=== PATIENT | female | born 1955 | race African-American/Black ===

== ENCOUNTER 2024-06-20 00:50 | Inpatient (IN) | payer OTHER ==
[~2024-06-20] VITALS: Ht 165.1 cm; Wt 113.4 kg
[2024-06-20 01:22] LABS: BASOPHILS % 0.9 % (0.0-2.0); EOSINOPHILS % 2.1 % (0.0-5.0); HEMATOCRIT. 38.1 % (36.0-48.0); HEMOGLOBIN. 12.6 g/dL (12.0-16.0); LYMPHOCYTES % 43.7 % (20.0-50.0); MEAN CORPUSCULAR HEMOGLOBIN 28.5 pg (28.0-32.0); MEAN CORPUSCULAR HGB CONC 33.1 g/dL (31.0-37.0); MEAN CORPUSCULAR VOLUME 85.9 fL (81.0-99.0); MEAN PLATELET VOLUME 8.5 fl (7.4-10.4); MONOCYTES % 8.6 % (2.0-8.0); NEUTROPHILS % 44.7 % (40.0-76.0); PLATELET 257 x1000/uL (130-400); RED BLOOD CELL COUNT 4.43 mill/uL (4.2-5.4); RED CELL DISTRIBUTION WIDTH 15.4 % (11.6-14.6); WHITE BLOOD COUNT 7.7 x1000/uL (4.5-11.0)
[2024-06-20 01:28] LABS: CHLORIDE 104 mEq/L (98-107); POTASSIUM 3.1 mEq/L (3.5-5.1); SODIUM 141 mEq/L (136-145)
[2024-06-20 01:29] LABS: CARBON DIOXIDE 34 mEq/L (21-32)
[2024-06-20 01:30] LABS: CALCIUM 9.5 mg/dL (8.7-10.4)
[2024-06-20 01:34] LABS: CREATININE 1.1 mg/dL (0.6-1.0); GLUCOSE 103 mg/dL (70-105)
[2024-06-20 01:35] LABS: ETHANOL BLOOD < 10 mg/dL (<10); UREA NITROGEN BLOOD 18 mg/dL (9-23)
[2024-06-20 01:43] LABS: TROPONIN I HIGH SENSITIVITY 42 ng/L (3.0-34)
[2024-06-20 01:45] LABS: PARTIAL THROMBOPLASTIN TIME 21.1 sec (23.4-31.0); PROTHROMBIN TIME 10.8 sec (9.6-11.0)
[2024-06-20] MEDS ORDERED: MORPHINE SULFATE 4 MG/ML INJ (FOR IV/IM USE) IV NR (02:00)
[2024-06-20] MEDS: ASPIRIN 325MG EC TABLET PO NR (02:07)
[2024-06-20] MEDS ORDERED: HEPARIN BOLUS PRN aPTT <30 IV ×2 (02:45→03:02)
[2024-06-20] MEDS ORDERED: HEPARIN 60 UNITS/KG BOLUS IV SCH (02:45)
[2024-06-20] MEDS ORDERED: HEPARIN BOLUS PRN aPTT 30-44 IV ×2 (02:45→03:03)
[2024-06-20] MEDS: MORPHINE SULFATE 2 MG/ML INJ (NOT FOR IM USE) IV ONE (03:02)
[2024-06-20] MEDS: HEPARIN 60 UNITS/KG BOLUS IV NR (03:24)
[2024-06-20] MEDS: HEPARIN 25,000 UNITS PREMIX 250 ML IV SCH (03:35)
[2024-06-20 04:18] LABS: TROPONIN I HIGH SENSITIVITY 47 ng/L (3.0-34)
[2024-06-20] MEDS: POTASSIUM CHLORIDE 20MEQ/PACKET PO NR (04:37)
[2024-06-20 05:00] VITALS: BP 119/66; PULSE 58; RESP 18; TEMP 36.2; O2SAT 99
[2024-06-20] MEDS ORDERED: ONDANSETRON HCL 4MG/2ML INJ IV PRN (05:00)
[2024-06-20] MEDS ORDERED: ENOXAPARIN 40MG/0.4ML SYR SUBCUT SCH (05:00)
[2024-06-20] MEDS ORDERED: CLONIDINE 0.1MG TABLET PO PRN (05:00)
[2024-06-20] MEDS ORDERED: ACETAMINOPHEN 325MG TABLET PO PRN (05:00)
[2024-06-20] MEDS ORDERED: METF-414 PO (06:14)
[2024-06-20] MEDS ORDERED: LEVO125T PO (06:14)
[2024-06-20] MEDS ORDERED: BENZ100C86 PO (06:14)
[2024-06-20 06:15] VITALS: BP 119/66; PULSE 58; RESP 18; TEMP 36.2
[2024-06-20] MEDS: ACETAMINOPHEN 325MG TABLET PO PRN (06:45)
[2024-06-20 08:00] VITALS: BP 106/70; PULSE 52; RESP 17; TEMP 36.8; O2SAT 100
[2024-06-20] MEDS: NITROGLYCERIN 0.4MG TABLET SL SL NR ×2 (08:00)
[2024-06-20 10:04] LABS: CHLORIDE 106 mEq/L (98-107); POTASSIUM 4.2 mEq/L (3.5-5.1); SODIUM 136 mEq/L (136-145)
[2024-06-20 10:05] LABS: CALCIUM 9.4 mg/dL (8.7-10.4); CARBON DIOXIDE 23 mEq/L (21-32)
[2024-06-20 10:09] LABS: CREATININE 0.9 mg/dL (0.6-1.0); GLUCOSE 106 mg/dL (70-105)
[2024-06-20 10:10] LABS: UREA NITROGEN BLOOD 14 mg/dL (9-23)
[2024-06-20 10:11] LABS: ALANINE AMINOTRANSFERASE 19 IU/L (10-49); ASPARTATE AMINOTRANSFERASE 27 IU/L (<34)
[2024-06-20 10:12] LABS: ALBUMIN 3.7 g/dL (3.2-4.8); BILIRUBIN TOTAL 0.4 mg/dL (0.1-1.0); PROTEIN TOTAL 6.8 g/dL (6.0-8.3)
[2024-06-20 10:43] LABS: TROPONIN I HIGH SENSITIVITY 38 ng/L (3.0-34)
[2024-06-20 12:00] VITALS: BP 125/75; PULSE 62; RESP 19; TEMP 36.4; O2SAT 98
[2024-06-20] MEDS ORDERED: METOPROLOL TARTRATE 5MG/5ML VIAL IV PRN (13:30)
[2024-06-20] MEDS: ENOXAPARIN 30MG/0.3ML SYR SUBCUT SCH (14:10)
[2024-06-20] MEDS: MAGNESIUM/ALUMINUM HYDROXIDE/SIMETHICONE 30ML UDC PO PRN (14:29)
[2024-06-20 15:07] LABS: TROPONIN I HIGH SENSITIVITY 40 ng/L (3.0-34)
[2024-06-20] MEDS ORDERED: HYDRALAZINE 20MG/ML VIAL IV PRN (15:45)
[2024-06-20 16:55] VITALS: PULSE 57; RESP 18; TEMP 36.8; O2SAT 98
[2024-06-20] MEDS ORDERED: DEXTROSE 50% WATER 50ML SYRINGE IV PRN (17:30)
[2024-06-20] MEDS: PANTOPRAZOLE SODIUM 40 MG/VIAL IV SCH (17:49)
[2024-06-20] MEDS: VISCOUS LIDOCAINE 2% 15 ML UDC MM NR (18:02)
[2024-06-20] MEDS: MAGNESIUM/ALUMINUM HYDROXIDE/SIMETHICONE 30ML UDC PO NR (18:02)
[2024-06-20] MEDS: LEVOTHYROXINE SODIUM 125MCG TABLET PO SCH (18:02)
[2024-06-20 20:00] VITALS: BP 126/72; PULSE 63; RESP 20; TEMP 36.3; O2SAT 90
[2024-06-20] MEDS: BLOOD SUGAR DIAGNOSTIC STRIP TEST SCH (20:59)
[2024-06-20] MEDS: INSULIN LISPRO 100 UNITS/ML SUBCUT SCH (20:59)
[2024-06-20 21:07] LABS: CLARITY URINE CLOUDY (CLEAR); COLOR URINE YELLOW (YELLOW); GLUCOSE URINE NEGATIVE (NEGATIVE); KETONES URINE NEGATIVE (NEGATIVE); LEUKOCYTE ESTERASE URINE 1+ (NEGATIVE); NITRITE URINE NEGATIVE (NEGATIVE); OCCULT BLOOD URINE TRACE (NEGATIVE); PROTEIN URINE TRACE (NEGATIVE); SPECIFIC GRAVITY URINE 1.018 (1.005-1.030); UROBILINOGEN URINE 0.2 E.U./dL (0.2-1.0)
[2024-06-20 21:24] LABS: *AMPHETAMINES SCREEN URINE NEGATIVE (NEGATIVE); *BARBITURATES SCREEN URINE NEGATIVE (NEGATIVE); *BENZODIAZEPINES SCREEN URINE NEGATIVE (NEGATIVE); *COCAINE SCREEN URINE NEGATIVE (NEGATIVE); METHADONE URINE SCREEN NEGATIVE (NEGATIVE); OPIATES URINE SCREEN NEGATIVE (NEGATIVE); PHENCYCLIDINE URINE SCREEN NEGATIVE (NEGATIVE)
[2024-06-20 21:25] LABS: CANNABINOID URINE SCREEN NEGATIVE (NEGATIVE); ECSTASY MDMA SCREEN URINE NEGATIVE (NEGATIVE)
[2024-06-20 21:27] LABS: BACTERIA URINE 2+; RBC URINE 0-2 /hpf (0-2); SQUAMOUS EPITHELIAL CELL URINE 2+ /lpf (RARE/1+)
[2024-06-21] VITALS (7 sets, daily range): BP systolic 117–148; BP diastolic 62–80; PULSE 54–68; RESP 18–20; TEMP 36.3–37.1; O2SAT 90–98
[2024-06-21] MEDS: DIPHENHYDRAMINE 50MG/ML VIAL IV NR (01:59)
[2024-06-21 07:14] LABS: BASOPHILS % 0.8 % (0.0-2.0); CHLORIDE 103 mEq/L (98-107); EOSINOPHILS % 0.9 % (0.0-5.0); HEMATOCRIT. 38.3 % (36.0-48.0); HEMOGLOBIN. 12.4 g/dL (12.0-16.0); LYMPHOCYTES % 20.8 % (20.0-50.0); MEAN CORPUSCULAR HEMOGLOBIN 27.9 pg (28.0-32.0); MEAN CORPUSCULAR HGB CONC 32.4 g/dL (31.0-37.0); MONOCYTES % 10.1 % (2.0-8.0); NEUTROPHILS % 67.4 % (40.0-76.0); PLATELET 233 x1000/uL (130-400); POTASSIUM 3.4 mEq/L (3.5-5.1); RED BLOOD CELL COUNT 4.45 mill/uL (4.2-5.4); RED CELL DISTRIBUTION WIDTH 15.4 % (11.6-14.6); SODIUM 139 mEq/L (136-145); WHITE BLOOD COUNT 8.8 x1000/uL (4.5-11.0)
[2024-06-21 07:15] LABS: CALCIUM 9.4 mg/dL (8.7-10.4); CARBON DIOXIDE 29 mEq/L (21-32)
[2024-06-21 07:20] LABS: CREATININE 0.9 mg/dL (0.6-1.0); GLUCOSE 105 mg/dL (70-105); TRIGLYCERIDE 77 mg/dL (0-150); UREA NITROGEN BLOOD 12 mg/dL (9-23)
[2024-06-21 07:21] LABS: LDL CHOLESTEROL 95 mg/dL (5-100)
[2024-06-21 07:22] LABS: CHOLESTEROL 160 mg/dL (<200); HDL CHOLESTEROL 48 mg/dL (>65)
[2024-06-21 07:24] LABS: THYROID STIMULATING HORMONE 0.33 uIU/mL (0.55-4.78)
[2024-06-21 07:58] LABS: TROPONIN I HIGH SENSITIVITY 37 ng/L (3.0-34)
[2024-06-21] MEDS ORDERED: IOHEXOL-350 100 ML BOTTLE ONE (09:55)
[2024-06-21] MEDS: NITROGLYCERIN SPRAY/4.9GM CAN TL ONE (10:05)
[2024-06-21] MEDS: POTASSIUM CHLORIDE 20MEQ TABLET SR PO NR (10:56)
[2024-06-21] MEDS: DIPHENHYDRAMINE 25MG CAPSULE PO PRN (18:03)
== END 2024-06-21 20:30 | disposition home or self-care (01) | DRG 392 ==
LOC: ER 00:50 → EDBEDREQ 01:01 → 8WST 04:07 → EDBEDREQ 04:11 → 8WST 08:06
PROVIDERS: ADMIT Family Medicine Adult Medicine; ATTEND Family Medicine Adult Medicine
DX: K21.9 Gastro-esophageal reflux disease without esophagitis (principal); E03.9 Hypothyroidism, unspecified; E11.9 Type 2 diabetes mellitus without complications; E66.01 Morbid (severe) obesity due to excess calories; E78.00 Pure hypercholesterolemia, unspecified; E87.6 Hypokalemia; I50.9 Heart failure, unspecified; I11.0 Hypertensive heart disease with heart failure; M54.30 Sciatica, unspecified side; R00.1 Bradycardia, unspecified; F17.210 Nicotine dependence, cigarettes, uncomplicated; Z79.84 Long term (current) use of oral hypoglycemic drugs; Z88.0 Allergy status to penicillin; Z88.6 Allergy status to analgesic agent; Z88.8 Allergy status to other drugs, medicaments and biological substances
CPT/HCPCS: 36415; 71045; 75571; 80048; 80053; 80061; 80305; 80320; 81003; 82962; 83036; 83735; 83880; 84443; 84484; 85025; 87077; 87186; 93005; 93970; 99291; J1200; J1644; J1650; J2270; J2470; Q0163; Q9967; G0480